=== PATIENT | female | born 1945 | race Two or more races ===

== ENCOUNTER 2024-12-31 09:44 | Emergency (ER) | payer MEDICARE, MEDICAID, SELFPAY ==
[2024-12-31 09:45] VITALS: BMI 29.2
[2024-12-31 09:53] VITALS: BP 194/75; PULSE 58; RESP 18; TEMP 36.7; O2SAT 98
[2024-12-31] MEDS: DIPHTH,PERTUSS(ACELL),TET VAC 0.5 ML SYR- ADULT IMi (10:03)
[2024-12-31] MEDS: LIDOCAINE HCL 1% 20 ML VIAL INFL (10:06)
--- NOTE | 2024-12-31 10:33 | XR_ITS ---
Examination: Hand, left 3 views Technique: Hand AP, oblique, lateral 3 views Date and time of exam: December 31, 2024 1053 hours INDICATIONS: Injury to the hand today on the car door with second digit pain FINDINGS: Severe osteopenia No acute fracture No dislocation IMPRESSION: No acute fracture
--- NOTE | 2024-12-31 11:10 | EDNOTE_ITS ---
ED Wound/Laceration-RME/HPI General Chief Complaint: Wound/Laceration Stated Complaint: LAC TO INDEX FINGER Time Seen by Provider: 12/31/24 09:46 Arrival date/time: 12/31/24 09:44 79-year-old female presents emerged department today for complaint of laceration to left index finger patient reports that a car door accidentally closed on her hand Limitations: no limitations Related Data Previous Rx's ?Medication ?Instructions ?Recorded acetaminophen 650 mg 650 mg PO Q6HR PRN pain #20 tabs 05/03/19 tablet,extended release ibuprofen 600 mg tablet 600 mg PO Q6H PRN pain #20 t abs 05/03/19 Allergies Allergy/AdvReac Type Severity Reaction Status Date / Time No Known Allergies Allergy Verified 12/31/24 09:47 Review of Systems Review of Systems Systems Reviewed: All systems reviewed, normal except as documented Constitutional Constitutional: Reports system reviewed and no additional complaints, except as documented, Denies fever(s) and Denies headache(s) Eyes Eyes: Reports system reviewed and no additional complaints, except as documented and Denies blurry vision ENT Ears, Nose, Mouth, and Throat: Reports system reviewed and no additional comp laints, except as documented, Denies headache(s), Denies nasal congestion and Denies nasal discharge Cardiovascular Cardiovascular: Reports system reviewed and no additional complaints, except as documented, Denies chest pain and Denies dyspnea Respiratory Respiratory: Reports system reviewed and no additional complaints, except as documented, Denies chest congestion, Denies cough and Denies dyspnea Gastrointestinal Gastrointestinal: Reports system reviewed and no additional complaints, except as documented and Denies abdominal pain Musculoskeletal Musculoskeletal: Reports system reviewed and no additional complaints, except as documented, Reports arthralgias, Denies deformity and Denies joint swelling Integumentary/Breasts Skin/Breast: Reports system reviewed and no additional complaints, except as documented and Denies rash Neurologic Neurologic: Reports system reviewed and no additional complaints, except as documented, Reports as per HPI and Denies headache(s) Past Medical History Past Medical History CARDIAC: Positive Cardiac Disorders, Hypercholesterolemia and Hypertension; Negative Congestive Heart Failure RESPIRATORY: Negative Chronic Obstructive Pulmonary Disease (COPD) or Asthma GASTROINTESTINAL: Positive Gastrointestinal Disorders and Gall Bladder Disease GENITOURINARY: Negative Renal Disease ENDOCRINE: Negative Diabetes Mellitus Type 1 or Diabetes Mellitus Type 2 HEMATOLOGIC: Negative Sickle Cell Disease Social History SMOKING STATUS: Never smoker ED Exam General Limitations: Present no limitations General appearance: Present alert and in no apparent distress Head Head exam: Present atraumatic Eye Eye exam: Present normal appearance, PERRL and EOMI; Absent conjunctival injection ENT ENT exam: Present normal exam, normal oropharynx and mucous membranes moist Neck Neck exam: Present normal inspection, full ROM and trachea midline Chest Chest inspection: Present normal inspection and symmetric chest wall rise Respiratory Respiratory exam: Present normal lung sounds bilaterally Cardiovascular Cardiovascular exam: Present regular rate, normal rhythm and normal heart sounds Abdominal Exam Abdominal exam: Present soft and normal bowel sounds Extremities Exam Extremities exam: Present full ROM, tenderness, normal capillary refill and other (Laceration left hand index finger palmar aspect) Back Exam Back exam: Present normal inspection and full ROM Neurological Exam Neurological exam: Present alert, oriented X3, CN II-XII intact and reflexes normal; Absent motor sensory deficit Psychiatric Psychiatric exam: Present normal affect and normal mood Skin Skin exam: Present warm, dry and other (Laceration left hand index finger palmar aspect) Course Quality Measures none Orders Category Date Time Status Set Up Suture Tray STAT Care 12/31/24 09:57 Completed Wound Care NOW Care 12/31/24 09:57 Completed XR hand comp LT min 3V Stat Exams 12/31/24 10:33 Completed Lidocaine 1% 20 ml [Xylocaine 1% 20 ML] Med 12/31/24 09:57 Discontinued 20 ml INFL X1 ONE TET,DIP/PERT AC (Adult)-Tdap [Boostrix Adult (Tdap) Med 12/31/24 09:57 Discontinued Vacc] 0.5 ml IMI .ONCE ONE Vital Signs Vital signs: Vital Signs Temperature 98.1 F 12/31/24 09:53 Pulse Rate 58 L 12/31/24 09:53 Respiratory Rate 18 12/31/24 09:53 Blood Pressure 194/75 H 12/31/24 09:53 Pulse Oximetry (%) 98 12/31/24 09:53 Oxygen Delivery Method Room Air 12/31/24 09:53 O2 saturation 98% room air within Wound / Laceration MDM Narrative MDM Narrative:: 79-year-old female presents emergency department today for complaint of laceration to left index finger patient reports that a car door accidentally closed on her hand On exam patient is laceration to the palmar aspect of the left hand Imaging obtained no acute fracture dislocation noted Wound irrigated copiously laceration repaired wound is well-approximated with no active bleeding at the time of discharge Tetanus updated, patient has no deformity CMS intact cap refill less than 2 seconds no evidence of tendon or ligamentous injury Patient discharged home in no distress to follow-up with primary care doctor in the next 24 to 48 hours and for any worsening symptoms to return to the ER immediately Patient data External records reviewed:: [facility] previous records Clinical information provided by:: patient Social determinants that could affect healthcare access:: none Patient has the following chronic illnesses:: See history How is presenting disease/condition affected by chronic disease/condition?: uneffected by Evaluation data The following diagnostics were reviewed and interpreted by me:: radiology exam(s) Lab and/or radiology exams considered but not ordered:: Radiology obtain Interpretation Summary: Reviewed by me Medications / Prescriptions Medications or Prescriptions considered but not ordered:: Given Medication administrations:: Medication Administration History Discontinued Medications Diphtheria/Tetanus/Acell Pertussis (Diphth,Pertuss(Acell),Tet Vac 0.5 Ml Syr- Adult) 0.5 ml IMi .ONCE ONE Stop: 12/31/24 09:58 Last Admin: 12/31/24 10:03 Dose: 0.5 ml Documented By: ASHLYN Lidocaine HCl (Lidocaine Hcl 1% 20 Ml Vial) 20 ml INFL X1 ONE Stop: 12/31/24 09:58 Last Admin: 12/31/24 10:06 Dose: 20 ml Documented By: ASHLYN Comments: Administered by provider Given Consultations Consultation(s) initiated? (list below): No Diagnosis Wound Differential Diagnosis: laceration, abrasion and avulsion of skin Most likely diagnosis given after review of the tests above:: Laceration Admission Indicated Admission indicated?: not indicated Admission Request Was there a request for admission?: No Disposition Plan Disposition Plan: Discharge Discharge Attestation Discharge Attestation: The patient and all family members were given an opportunity to ask questions and understood the discharge instructions. Discharge instructions specifically effects, indications for sooner follow up or return to the emergency department, and the expected course of current diagnosis. Patient condition: Stable Discharge Plan Plan Patient Disposition: HOME (Self Care) Discharge Disposition comment: Stable Prescriptions/Referrals Prescriptions/Med Rec: No Action acetaminophen 650 mg tablet extended release 650 mg PO Q6HR PRN (Reason: pain) Qty: 20 0RF Rx Instructions: Take 1 Tylenol with one 600 mg ibuprofen every 6 hours together ibuprofen 600 mg tablet 600 mg PO Q6H PRN (Reason: pain) Qty: 20 0RF Rx Instructions: Take 1 ibuprofen with one 650 mg Tylenol together Referrals: Des Ramos MD [Primary Care Provider] - In 1 week Problem List Clinical Impression: Laceration of hand, left Patient/Caregiver Discharge Instructions Education Materials: ED Laceration: All Closures Additional Instructions: Please follow up with your primary care doctor in the next 24-48hrs for any worsening symptoms return here immediately Please have sutures removed in 10 days Print Language: Romansh Stand Alone Forms: Rea Award Info., Patient Portal Info Letter PA/KITCHEN PORTER Supervising Physician PA/KITCHEN PORTER Supervising Physician: Dr. parra
[2024-12-31 11:43] VITALS: BP 158/64; PULSE 60; RESP 16; O2SAT 98
== END 2024-12-31 11:44 | disposition home or self-care (01) ==
PROVIDERS: Emergency Provider Emergency Medicine; PCP Family Medicine
DX: S61.211A Laceration without foreign body of left index finger without damage to nail, initial encounter (principal); W23.0XXA Caught, crushed, jammed, or pinched between moving objects, initial encounter; Y92.810 Car as the place of occurrence of the external cause; Z23 Encounter for immunization
CPT/HCPCS: 12001; 73130; 90471; 90715; 99283; J3490